=== PATIENT | female | born 1950 | race Caucasian/White ===

== ENCOUNTER → 2016-10-26 | Day surgery (SDC) | payer MEDICARE, OTHER ==
[~2016-10-26] MED LIST: ACETAMINOPHEN/HYDROcodone 325 MG/5 MG TAB ONE; BUPIVACAINE/EPINEPHRINE 0.25% PF 10 ML VIAL ONE; IOHEXOL 180 MG/ML 20 ML VIAL (for RAD DIAG) ONE; KETOROLAC TROMETHAMINE 30 MG/ML (IVP) VIAL IV PUSH ONE; LACTATED RINGER'S 1000 ML INJ 1,000 ML ONE; LIDOCAINE 1%/EPINEPHrine 1:100,000 SOLN 20 ML VIAL ONE; MIDAZOLAM HCL 2 MG/2 ML VIAL ONE; PROPOFOL 500 MG/50 ML BTL IV ONE; ceFAZolin 2 GM PREMIX 50 ML ONE
--- NOTE | 2016-10-26 08:16 | TN ---
cc: FRAN SEBASTIAN M.D. DATE OF SURGERY 10/26/2016 PREOPERATIVE DIAGNOSIS Compression fracture T12, subacute. POSTOPERATIVE DIAGNOSIS Compression fracture T12, subacute. PROCEDURE Kyphoplasty of T12 and placement of a bone cement spacer. SURGEON Fran Sebastian MD ANESTHESIA TIVA. ESTIMATED BLOOD LOSS Minimal. INDICATION This patient is a 66-year-old female who initially injured her spine approximately four weeks ago. The patient slipped on a tree skirt on September 27 falling on her back. She has significant pain. An MRI scan of the thoracic spine on October 07 showed evidence of a recent T12 compression fracture with mild retropulsion at that level. The patient had progressive kyphotic deformity and significant pain despite conservative care now for four, almost 4-1/2 weeks. She presents for surgical treatment. PROCEDURE The patient was brought to the operating and given limited sedation. She was rolled to prone position on the radiolucent table. All pressure points were protected. The back was scrubbed with alcohol, followed by Hibiclens, followed by Chloraprep and draped sterilely. Antibiotics were given within a one-hour time window and a time-out was done. AP and lateral radiographic images were used identifying the T12 level and compared to preoperative studies. A double balloon approach was utilized using the Kyphon system. 15-mm balloons were utilized, a sequence of local anesthesia, small incision and an awl placed in the pedicle and into the vertebral body at that level. We filled the balloons and had reasonable correction of the deformity. The balloon on the left side ruptured and was removed. Some contrast was seen but there was not cement in the soft tissues. On the back table methacrylate was mixed and after 13 minutes was injected. We had good fill and no evidence of extravasation that we could perceive. The cement was allowed to harden, the tubes were removed. Intraoperative x-rays were obtained. The wounds were irrigated, anesthetized and closed with 4-0 Vicryl, followed by Dermabond. The patient was awakened and taken to recovery in satisfactory condition. MD OVIDIO Royal/ALIRIO /7:52 AM /8:10 AM
== END | disposition home or self-care (01) ==
LOC: ESDC 05:54
PROVIDERS: ATTEND Orthopaedic Surgery Orthopaedic Surgery of the Spine
DX: S22.080A Wedge compression fracture of T11-T12 vertebra, initial encounter for closed fracture (principal)
CPT/HCPCS: 01936; 22513; 72070; J0690; J1885; J2250; J3010; J7120; Q9965